=== PATIENT | male | born 1970 | race Caucasian/White ===

== ENCOUNTER → 2024-09-11 | Outpatient (REF) | LOC: M LABCFH 13:08 | DX: R31.29 Other microscopic hematuria (principal) ==

== ENCOUNTER 2024-10-28 12:45 | Day surgery (SDC) | payer OTHER ==
[~2024-10-28] VITALS: Ht 188 cm; Wt 91.8 kg
[2024-10-28] VITALS (8 sets, daily range): BP systolic 150–180; BP diastolic 78–105; TEMP 97.4–99.1; O2SAT 93–98
[~2024-10-28 12:45] MED LIST: GLYCOPYRROLATE INJ 0.2 MG/ML 2 ML VIAL As Ordered ONE; KETOROLAC 30 MG/ML 1 ML VIAL As Ordered ONE; LIDOCAINE 2% 100 MG/5 ML SDV (FOR ANES.) As Ordered ONE; LISI10TA22 PO; LR 1,000 ML IV SCH; MIDAZOLAM INJ 2 MG/2 ML VIAL As Ordered ONE; NAPR220C14 PO; ONDANSETRON 4MG 2ML VIAL As Ordered ONE; ROCURONIUM BROMIDE 50MG/5ML VIAL As Ordered ONE; dexAMETHasone 4 MG/ML 1 ML VIAL As Ordered ONE
[2024-10-28] MEDS: ceFAZolin SOD 2 GM IV ONCE IV ONE (12:59)
[2024-10-28] MEDS ORDERED: ACETAMINOPHEN 1000MG/100ML IV BAG As Ordered ONE (13:00)
[2024-10-28] MEDS ORDERED: SUGAMMADEX SODIUM 200 MG/2 ML VIAL As Ordered ONE (13:24)
[2024-10-28] MEDS: LR 1,000 ML IV SCH (13:35)
[2024-10-28] MEDS ORDERED: MEPERIDINE 25 MG/ML 1 ML VIAL IV PRN (13:35)
[2024-10-28] MEDS ORDERED: HYDROMORPHONE HCL 0.5 MG/0.5 ML SYRINGE IV PRN (13:35)
[2024-10-28] MEDS ORDERED: ONDANSETRON 4MG 2ML VIAL IV PRN (13:35)
[2024-10-28] MEDS ORDERED: hydrALAZINE 20 MG/ML 1 ML VIAL As Ordered ONE (14:10)
[2024-10-28] MEDS: hydrALAZINE 20 MG/ML 1 ML VIAL IV PRN (14:12)
[2024-10-28] MEDS ORDERED: ACETAMINOPHEN 325 MG TAB PO PRN (15:00)
[2024-10-28] MEDS ORDERED: HOME MED LIST COMPLETE! XX SCH (15:20)
[2024-10-28] MEDS: D5W/0.45% SODIUM CHLORIDE 1,000 ML IV SCH (15:24)
[2024-10-28] MEDS: MITOMYCIN 40MG IN 40ML SWFI SYRINGE INTRAVESIC ONE (15:58)
[2024-10-28] MEDS: PHENAZOPYRIDINE 100 MG TAB PO SCH (18:01)
[2024-10-28 19:40] LABS: CALCIUM LEVEL 8.1 MG/DL (8.5-10.1); CARBON DIOXIDE LEVEL 25 MMOL/L (20-31); CHLORIDE LEVEL 109 MMOL/L (98-107); CREATININE FOR GFR 0.93 MG/DL (0.70-1.30); GLOMERULAR FILTRATION RATE > 90.0 (>56); POTASSIUM SERUM 4.3 MMOL/L (3.5-5.1); SODIUM LEVEL 140 MMOL/L (136-145)
[2024-10-28] MEDS ORDERED: BACTRIM 160MG/800MG DS TAB PO SCH (21:00)
[2024-10-28] MEDS: BACTRIM 160MG/800MG DS TAB PO SCH (21:56)
[2024-10-29 00:50] VITALS: BP 122/70; TEMP 99.1; O2SAT 97
[2024-10-29 04:50] VITALS: BP 134/89; TEMP 98.4; O2SAT 98
[2024-10-29 07:53] VITALS: BP 162/94; TEMP 98.2; O2SAT 96
[2024-10-29 08:27] VITALS: BP 158/84
[2024-10-29] MEDS ORDERED: OXYB5TAB14 PO (08:56)
[2024-10-29] MEDS ORDERED: PYRI1TAB5 PO (08:56)
[2024-10-29] MEDS ORDERED: MACR100C43 PO (08:56)
== END 2024-10-29 10:40 | disposition home or self-care (01) ==
LOC: M SDC 12:45 → M MS4PR 15:10 → M SDC 10-29 10:40
PROVIDERS: ATTEND Urology
DX: N30.80 Other cystitis without hematuria (principal); I10 Essential (primary) hypertension; Z79.899 Other long term (current) drug therapy; F17.210 Nicotine dependence, cigarettes, uncomplicated; Z86.711 Personal history of pulmonary embolism
CPT/HCPCS: 36415; 52240; 52332; 80048; 88307; C2617; J0131; J0360; J0690; J1100; J1596; J1885; J2250; J2405; J3010